=== PATIENT | female | born 1975 | race American Indian/Alaskan Native ===

== ENCOUNTER 2017-10-31 21:03 | Emergency (ER) | payer SELFPAY ==
[~2017-10-31 21:03] MED LIST: ADRENALIN ONE; CORDARONE IV ONE; SODIUM BICARBONATE IV ONE; XYLOCAINE CARDIAC IV ONE
[2017-10-31] MEDS ORDERED: XYLOCAINE/D5W 2GM/500ML DRIP 2,000 MG/500 ML BAG IV ONE ×2 (21:28→22:21)
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
== END 2017-11-01 00:54 ==
LOC: ED 21:37
DX: S21.301A Unspecified open wound of right front wall of thorax with penetration into thoracic cavity, initial encounter (principal); I46.9 Cardiac arrest, cause unspecified; X58.XXXA Exposure to other specified factors, initial encounter; Y93.89 Activity, other specified; Y92.89 Other specified places as the place of occurrence of the external cause; Y99.8 Other external cause status
CPT/HCPCS: 31500; 86850; 86900; 86901; 86920; 99285; J0171; J0282; J2001; P9016